=== PATIENT | female | born 1950 ===

== ENCOUNTER 2017-01-19 07:52 | Day surgery (SDC) | payer MEDICARE, OTHER ==
[2016-09-09 00:52] VITALS: BMI 49.6
[2017-01-19] MEDS ORDERED: Lactated Ringer's 1,000 ML IV ONE (08:27)
[2017-01-19] MEDS ORDERED: Propofol 10 mg/ml Inj (20 ML) ONE (11:04)
[2017-01-19] MEDS ORDERED: Lidocaine 2% MPF (5 ml) Inj ONE (11:04)
[2017-01-19 11:51] VITALS: BP 146/71; PULSE 69; RESP 18; TEMP 98.3; O2SAT 97
== END 2017-01-19 11:51 | disposition home or self-care (01) ==
LOC: H.ENDO 07:52
PROVIDERS: ATTEND Internal Medicine Gastroenterology
DX: K21.9 Gastro-esophageal reflux disease without esophagitis (principal); I10 Essential (primary) hypertension; E11.9 Type 2 diabetes mellitus without complications; K29.70 Gastritis, unspecified, without bleeding
CPT/HCPCS: 43239; 88305; J2704; J7120